=== PATIENT | female | born 1995 | race Caucasian/White ===

== ENCOUNTER 2016-09-23 19:16 | Emergency (ER) | payer OTHER ==
[~2016-09-23] VITALS: Ht 170.2 cm; Wt 61.6 kg
[2016-09-23 19:25] VITALS: TEMP 37.8; Ht 170.2 cm; Wt 61.6 kg
[2016-09-23] MEDS ORDERED: SODIUM CHLORIDE 0.9% 1000ML 1,000 ML IV STA (19:35)
--- NOTE | 2016-09-23 19:55 | EMERGENCY ROOM VISIT NOTE ---
History Report prepared by Isabella: Mich Gunter Under the Supervision of: Dr. Cody Sky M.D. First contact with patient: 19:29 Chief Complaint: SEIZURE Stated Complaint: SEIZURE LIKE SYMPTOMS History of Present Illness The patient is a 21 year old female who presents to the Emergency Room with complaints of intermittent and frequent seizure-like episodes that the patient has been experiencing for the past week. Per the patient's grandmother the patient has been experiencing these episodes 4-5 times per day. These episodes present with shaking and twitching of the arms and legs, followed by the patient becoming unresponsive. When she comes out of the episode she is non- verbal. The patient has been to the [facility] three times for the same issue. She was there 3 days ago and was prescribed Ativan to help with her shaking. The patient was also recently discharged from [facility]. She last visited with her mental health physician one week ago. Source of History: patient Onset: One week [employer] Position: other (Neuro) Quality: other (Seizure activity) Timing: intermittent, other (Frequent) Associated Symptoms: + LOC Review of Systems See HPI for pertinent positives & negatives. A total of 10 systems reviewed and were otherwise negative. Past Medical & Surgical Medical Problems: (1) Mood disorder Family History No pertinent family history Social History Smoking Status: Never Smoker Marital Status: single Housing Status: lives with family Current/Historical Medications Scheduled Bupropion (Wellbutrin Sr), 150 MG PO DAILY Propranolol (Inderal), 5 MG PO BID Sertraline (Zoloft), 100 MG PO DAILY Scheduled PRN Lorazepam (Ativan), 1 MG PO TID PRN for Anxiety Trazodone Hcl (Trazodone), 50 MG PO HS PRN for Sleep Allergies Coded Allergies: Sulfa Antibiotics (Verified Allergy, Severe, HIVES, 09/23/16) Physical Exam Vital Signs Date Time Temp Pulse Resp B/P Pulse Ox O2 Delivery O2 Flow Rate FiO2 09/23/16 22:32 72 18 122/59 97 09/23/16 21:18 76 16 119/66 98 Room Air 09/23/16 20:12 87 09/23/16 19:59 96 Room Air 09/23/16 19:59 96 Room Air 09/23/16 19:59 96 Room Air 09/23/16 19:25 37.8 99 18 107/75 97 Room Air Physical Exam GENERAL: Patient is a healthy-appearing well-nourished. No evidence of meningitis encephalitis on exam. HEAD: Normocephalic atraumatic EYES: Ocular movements intact pupils equal and react to light OROPHARYNX mucous membranes are moist no exudates present no erythema or edema present NECK: Supple no nuchal rigidity. No evidence of meningitis encephalitis on exam CHEST: Good equal expansion LUNGS: Clear and equal to auscultation CARDIAC: Normal S1 and S2 ABDOMEN: Soft nontender no guarding BACK: No CVA tenderness EXTREMITIES: No pain upon palpation normal muscle strength in all groups no clubbing cyanosis or edema NEURO: Patient is following commands is answering questions appropriately. Alert and oriented x3 Cranial Nerves 2-12 grossly intact Medical Decision & Procedures ER Provider Diagnostic Interpretation: Radiology results as stated below per my review and radiologist interpretation: MRI OF THE BRAIN WITHOUT IV CONTRAST CLINICAL HISTORY: Headache. Seizure like activity. COMPARISON STUDY: No priors. TECHNIQUE: MRI of the brain was performed utilizing various T1 and T2-weighted sequences in the axial, sagittal, and coronal planes. IV contrast was not administered for this examination. The examination was performed utilizing the seizure protocol. FINDINGS: Brain parenchyma: The brain parenchyma is normal in appearance. There is no hemorrhage or mass effect. There is no restricted diffusion to suggest acute ischemia. Jensen-white matter differentiation is preserved. No extra-axial fluid collection is seen. The cerebellar tonsils are normal in configuration. The hippocampi are normal and symmetric. Ventricles, sulci, and cisterns: Normal in configuration. Pituitary and sella: Unremarkable. Intracranial vasculature: Normal flow voids are maintained at the skull base. Orbits: The bony orbits are grossly intact. Orbital contents are normal in appearance. Sinuses and mastoids: Clear. Calvarium: Unremarkable. Cervical cord: Partially visualized cervical spinal cord is normal in morphology and signal intensity. IMPRESSION: No acute intracranial abnormality. Electronically signed by: Den Power M.D. 09/23/2016 10:04 PM Dictated Date/Time: 09/23/2016 10:01 PM Laboratory Results 09/23/16 19:45 Red Blood Count 4.92, Mean Corpuscular Volume 86.4, Mean Corpuscular Hemoglobin 30.1, Mean Corpuscular Hemoglobin Concent 34.8, Mean Platelet Volume 9.7, Neutrophils (%) (Auto) 59.4, Lymphocytes (%) (Auto) 29.3, Monocytes (%) (Auto) 9.9, Eosinophils (%) (Auto) 0.9, Basophils (%) (Auto) 0.2, Neutrophils # (Auto) 6.96, Lymphocytes # (Auto) 3.42, Monocytes # (Auto) 1.16, Eosinophils # (Auto) 0.10, Basophils # (Auto) 0.02 09/23/16 19:45 Test 09/23/16 19:45 09/23/16 19:52 White Blood Count 11.69 K/uL (4.8-10.8) Red Blood Count 4.92 M/uL (4.2-5.4) Hemoglobin 14.8 g/dL (12.0-16.0) Hematocrit 42.5 % (37-47) Mean Corpuscular Volume 86.4 fL (80-100) Mean Corpuscular Hemoglobin 30.1 pg (25-34) Mean Corpuscular Hemoglobin Concent 34.8 g/dl (32-36) Platelet Count 279 K/uL (130-400) Mean Platelet Volume 9.7 fL (7.4-10.4) Neutrophils (%) (Auto) 59.4 % Lymphocytes (%) (Auto) 29.3 % Monocytes (%) (Auto) 9.9 % Eosinophils (%) (Auto) 0.9 % Basophils (%) (Auto) 0.2 % Neutrophils # (Auto) 6.96 K/uL (1.4-6.5) Lymphocytes # (Auto) 3.42 K/uL (1.2-3.4) Monocytes # (Auto) 1.16 K/uL (0.11-0.59) Eosinophils # (Auto) 0.10 K/uL (0-0.5) Basophils # (Auto) 0.02 K/uL (0-0.2) RDW Standard Deviation 42.7 fL (36.4-46.3) RDW Coefficient of Variation 13.4 % (11.5-14.5) Immature Granulocyte % (Auto) 0.3 % Immature Granulocyte # (Auto) 0.03 K/uL (0.00-0.02) Prothrombin Time 10.6 SECONDS (9.0-12.0) Prothromb Time International Ratio 1.0 (0.9-1.1) Activated Partial Thromboplast Time 26.6 SECONDS (21.0-31.0) Partial Thromboplastin Ratio 1.0 Anion Gap 7.0 mmol/L (3-11) Est Creatinine Clear Calc Drug Dose 128.3 ml/min Estimated GFR () 145.9 Estimated GFR (Non- 125.9 BUN/Creatinine Ratio 14.2 (10-20) Calcium Level 8.9 mg/dl (8.5-10.1) Phosphorus Level 4.0 mg/dl (2.5-4.9) Magnesium Level 2.5 mg/dl (1.8-2.4) Thyroid Stimulating Hormone (TSH) 1.200 uIu/ml (0.300-4.500) Human Chorionic Gonadotropin, Qual NEG (NEG) Bedside Glucose 97 mg/dl (70-90) Labs reviewed by ED physician. Medications Administered Medications (Trade) Dose Ordered Sig/Maryam Route Start Time Stop Time Status Last Admin Dose Admin Sodium Chloride (Nss 1000ml) 1,000 ml @ 999 mls/hr Q1H1M STAT IV 09/23/16 19:35 09/23/16 20:35 DC 09/23/16 19:35 999 MLS/HR ED Course 1928: Past medical records reviewed. The patient was evaluated in room C10. A complete history and physical examination was performed. 1934: Ordered Sodium Chloride 1000 mL @ 999 mL/hr IV. 2116: I checked on the patient at this time. The patient's family stated that she just had a seizure-like episode. She is no awake and answering all questions , she does not appear confused. There is no evidence of seizure activity. 2229: Upon reexamination the patient is resting in bed. I discussed results and treatment plan with the patient. She verbalizes agreement and understanding. The patient is ready for discharge. Medical Decision Differential diagnosis: Etiologies such as infection, hypoglycemia, electrolyte abnormalities, cardiac sources, intracerebral event, trauma, toxicologic, neurologic, as well as others were entertained. This is a 21-year-old female who presents emergency department complaining of seizure-like activity that has been ongoing for the past month. The patient has been seen at [facility] emergency department 3 times and was prescribed Ativan for the activity. The patient has been waiting to get an appointment with neurology [facility]. Records from [facility] were reviewed. The patient had a CAT scan of the head performed there however if her symptoms were persisting the patient was to get an MRI. Based on the patient's complaint as well as these findings I believe that the patient does warrant an MRI however this was read as normal. She has normal CBC normal renal profile normal liver profile. She had a another seizure-like episode witnessed by the family in the emergency department however I was unable to witness this. The patient did not appear confused after the episode. I believe based on these findings at the patient can be safely discharged home. I did discuss the case with case management to get the patient seen by neurology quicker. Patient family were in agreement with the treatment plan. Impression Primary Impression: Seizure Scribe Attestation The scribe's documentation has been prepared under my direction and personally reviewed by me in its entirety. I confirm that the note above accurately reflects all work, treatment, procedures, and medical decision making performed by me. Departure Information Dispostion Home / Self-Care Referrals Lambert Patton M.D. (PCP) Forms HOME CARE DOCUMENTATION FORM, IMPORTANT VISIT INFORMATION Patient Instructions My [facility] Additional Instructions Follow up with DR Higgins's office You have been examined and treated today on an emergency basis only. This is not a substitute for, or an effort to provide, complete comprehensive medical care. It is impossible to recognize and treat all injuries or illnesses in a single emergency department visit. It is therefore important that you follow up closely with Dr Patton. Call as soon as possible for an appointment. Thank you for your time and consideration. I look forward to speaking with you again soon. Please don't hesitate to call us if you have any questions.
[2016-09-23 19:59] VITALS: O2SAT 96
[2016-09-23 20:03] LABS: BASO % 0.2 %; BASO ABS # 0.02 K/uL (0-0.2); COMPLETE YES; EOS % 0.9 %; HEMATOCRIT 42.5 % (37-47); IG% 0.3 %; LYMPH % 29.3 %; LYMPH ABS # 3.42 K/uL (1.2-3.4); MEAN CELL VOLUME 86.4 fL (80-100); MEAN CORPUSCULAR HEMOGLOBIN 30.1 pg (25-34); MEAN CORPUSCULAR HGB CONC 34.8 g/dl (32-36); MEAN PLATELET VOLUME 9.7 fL (7.4-10.4); MONO % 9.9 %; NEUT % 59.4 %; PLATELET COUNT 279 K/uL (130-400); RED BLOOD COUNT 4.92 M/uL (4.2-5.4); WHITE BLOOD COUNT 11.69 K/uL (4.8-10.8)
[2016-09-23 20:16] LABS: PROTHROMBIN TIME (PATIENT) 10.6 SECONDS (9.0-12.0)
[2016-09-23 20:24] LABS: PREG INTERNAL NEGATIVE QC NEG CLEAR BACKGROUND; PREG INTERNAL POSITIVE QC POS CONTROL LINE
[2016-09-23 20:26] LABS: BUN/CREATININE RATIO 14.2 (10-20); CALCIUM 8.9 mg/dl (8.5-10.1); CREATININE 0.68 mg/dl (0.60-1.20); MAGNESIUM 2.5 mg/dl (1.8-2.4); POTASSIUM 3.8 mmol/L (3.5-5.1)
[2016-09-23] MEDS ORDERED: SERT-234 PO (20:32)
[2016-09-23] MEDS ORDERED: ATV/1 PO (20:32)
[2016-09-23] MEDS ORDERED: PROP10TA7 PO (20:32)
[2016-09-23] MEDS ORDERED: TRAZ50TA35 PO (20:32)
[2016-09-23] MEDS ORDERED: BUPR-79 PO (20:32)
[2016-09-23 20:36] LABS: THYROID STIMULATING HORMONE 1.2 uIu/ml (0.300-4.500)
--- NOTE | 2016-09-23 22:06 | DIAGNOSTIC IMAGING REPORT ---
MRI OF THE BRAIN WITHOUT IV CONTRAST CLINICAL HISTORY: Headache. Seizure like activity. COMPARISON STUDY: No priors. TECHNIQUE: MRI of the brain was performed utilizing various T1 and T2-weighted sequences in the axial, sagittal, and coronal planes. IV contrast was not administered for this examination. The examination was performed utilizing the seizure protocol. FINDINGS: Brain parenchyma: The brain parenchyma is normal in appearance. There is no hemorrhage or mass effect. There is no restricted diffusion to suggest acute ischemia. Jensen-white matter differentiation is preserved. No extra-axial fluid collection is seen. The cerebellar tonsils are normal in configuration. The hippocampi are normal and symmetric. Ventricles, sulci, and cisterns: Normal in configuration. Pituitary and sella: Unremarkable. Intracranial vasculature: Normal flow voids are maintained at the skull base. Orbits: The bony orbits are grossly intact. Orbital contents are normal in appearance. Sinuses and mastoids: Clear. Calvarium: Unremarkable. Cervical cord: Partially visualized cervical spinal cord is normal in morphology and signal intensity. IMPRESSION: No acute intracranial abnormality. Electronically signed by: Den Power M.D. 09/23/2016 10:04 PM Dictated Date/Time: 09/23/2016 10:01 PM
[2016-09-23 22:32] VITALS: BP 122/59; PULSE 72; O2SAT 97
[2017-04-11] MEDS ORDERED: AMOX875T PO (21:55)
== END 2016-09-23 22:33 | disposition home or self-care (01) ==
LOC: C.EDB 19:17 → C.EDC 22:33
DX: R56.9 Unspecified convulsions (principal); F39 Unspecified mood [affective] disorder; Z79.899 Other long term (current) drug therapy